=== PATIENT | female | born 2000 | race Caucasian/White ===

== ENCOUNTER 2025-02-17 10:07 | Inpatient (IN) ==
--- NOTE | 2025-02-17 10:37 | Emergency Department Note ---
Impression & Plan Cellulitis of multiple sites of right hand and fingers ED Provider Note CHIEF COMPLAINT: Recheck infected cat bite right hand HPI: Patient is a 25-year-old female who returns to the emergency department as advised for recheck of an infected cat bite on her right second finger. She was seen and evaluated by myself yesterday. The cat bite had occurred the day prior. She received IV Unasyn and was discharged on Augmentin. Patient reports that she has tolerated the antibiotic, with some mild GI upset, she could also be a little nervous or anxious. There is no vomiting. She is only used ibuprofen twice since leaving the emergency department. She feels like the swelling in her finger and hand has gone down, and that movement of her finger is better. Admittedly, the redness on the dorsum of the hand seems to be a little bit worse. No fever, chills, nausea, vomiting or malaise. REVIEW OF SYSTEMS: Review of systems as per HPI. All other systems reviewed were negative. 10 systems reviewed. PMH: T external medical records are reviewed and summarized as above/below. See Problem List. SOCIAL HISTORY: Patient lives at home. PHYSICAL EXAM: Vital Signs: Reviewed Nurse's notes. CONSTITUTIONAL: Patient is a well-appearing 25-year-old female who is awake and alert and seated on the gurney. MUSCULOSKELETAL/INTEGUMENTARY: Examination of the right hand note 2 puncture wounds from the cat bite, 1 on the dorsal second finger at the PIP crease, and one on the palmar aspect of the finger, also at the PIP crease. There is swelling of the right second finger, primarily from the PIP crease, proximally, associated erythema of the finger. There is more coalesced erythema into the dorsum of the hand, from the webspace between the thumb and the index finger to the third metacarpal. There is no lymphangitic streaking past the wrist. The finger is tender to palpation, primarily over the PIP and the proximal phalanx. Passively, she can be extended fully, and can actively flex, limited by soft tissue swelling. There is no significant pain or erythema over the palmar aspect of the finger over the flexor tendons. The right upper extremity is neurovascularly intact. EMERGENCY DEPARTMENT COURSE: The patient was seen and assessed as above. External medical records were reviewed. I am familiar with the patient from her ED visit yesterday. On exam, the erythema has spread and worsened across the dorsum of the hand and finger. She is still moderately swollen, and tender and has decreased range of motion. Fortunately majority of of findings are on the extensor surface of the hand, rather than the flexor, which does refugio well for her. Offered her a repeat dose of IV antibiotics in the ED today, and recheck in another 24 hours, versus inpatient care at this time and she prefers the latter, which I think is reasonable. Saline lock was placed. Laboratory studies were repeated including CBC and BMP. She was given a dose of Unasyn IV. Patient discussed with ED machine adjuster leader case trim and consultation placed with the [facility] hospitalist service. Please refer to hospitalist consultation for further information. Exam does not appear consistent with infectious flexor tenosynovitis, cellulitis, abscess or necrotizing fasciitis at this time. Past Med/Surg History Problem List (Updated 02/17/25 @ 17:35 by Juanjose Camilo) Cellulitis of multiple sites of right hand and fingers (Acute) Cellulitis of multiple sites of right hand and fingers Cat bite of right hand including fingers with infection Cellulitis Cat bite (Acute) Medical History Anxiety Environmental and seasonal allergies Surgical History No history of previous surgery Social History Smoking Status: Never smoker Hx Alcohol Use: Yes Hx Substance Use: No Preferred Language: [place] Communication Ability: Effective Facilities Painter Required: No Beliefs That Will Affect Care: None Current Living Situation: Spouse Current Living Situation Comment: lives at home with boyfriend Feels Safe at Home: Yes Allergies Allergies Allergy/AdvReac Type Severity Reaction Status Date / Time sulfamethoxazole Allergy Mild Verified 02/16/25 09:40 [From Bactrim] trimethoprim [From Bactrim] Allergy Mild Verified 02/16/25 09:40 Home Meds Home Medications Medication Instructions Recorded Confirmed citalopram 40 mg tablet 40 mg PO DAILY 02/16/25 02/17/25 spironolactone 50 mg tablet 50 mg PO DAILY 02/16/25 02/17/25 Previous Rx's Medication Instructions Recorded amoxicillin 875 mg-potassium 1 tab PO BID #20 tabs 02/16/25 clavulanate 125 mg tablet Results & Data (ED) Vital Signs Vital Signs - 24 hr 02/17/25 10:09 Temperature 36.7 C Temperature Source Temporal Artery Scan Pulse Rate 96 H Respiratory Rate 18 Respiratory Effort / Characteristics Non-Labored Spontaneous Respiratory Depth Normal Blood Pressure 146/75 H Blood Pressure Mean 98 Blood Pressure Position Sitting Pulse Oximetry 97 Oxygen Delivery Method Room Air Sepsis Recent Fever Within 48 Hours No Sepsis New/Unexplained Change in Mental Status No Sepsis Action Taken by Nursing No Action Required Home Medications Current Medication List: was personally reviewed by me Laboratory Data Attestation: I reviewed the patient's lab results. 02/17/25 11:25 02/17/25 11:25 Lab Results 02/17/25 Range/Units 11:25 WBC 9.58 (4.8-10.8) K/ul RBC 4.66 (4.20-5.40) M/uL Hgb 14.6 (12.0-16.0) g/dl Hct 41.8 (37.0-47.0) % MCV 89.7 (80.0-100.0) fL MCH 31.3 (25.0-34.0) pg MCHC 34.9 (32.0-36.0) g/dL RDW Std Deviation 39.9 (36.4-46.3) fL RDW Coeff of Sharif 12.2 (11.5-14.5) % Plt Count 264 (130-400) K/uL MPV 9.4 (9.4-12.4) fL Immature Gran % (Auto) 0.2 % Neut % (Auto) 46.6 % Lymph % (Auto) 44.6 % [place] % (Auto) 7.6 % Eos % (Auto) 0.7 % Baso % (Auto) 0.3 % Neut # (Auto) 4.46 (1.40-6.50) K/uL Lymph # (Auto) 4.27 H (1.20-3.40) K/uL [place] # (Auto) 0.73 H (0.11-0.59) K/uL Eos # (Auto) 0.07 (0.00-0.50) K/uL Baso # (Auto) 0.03 (0.00-0.20) K/uL Immature Gran # (Auto) 0.02 (0.01-0.20) K/uL Sodium 137 (136-145) mmol/L Potassium 3.8 (3.5-5.1) mmol/L Chloride 102 (98-107) mmol/L Carbon Dioxide 26 (21-32) mmol/L Anion Gap 9 (3-11) BUN 6 (6-23) mg/dl Creatinine 0.56 L (0.6-1.2) mg/dl Est Cr Clr Drug Dosing 190.0 ml/min eGFR 128.20 BUN/Creatinine Ratio 10.7 (10-20) Glucose 100 H (70-99(Fasting)) mg/dl Calcium 10.3 (8.6-10.3) mg/dl Administered Medications Ampicillin Sodium/Sulbactam Sodium (Unasyn) 3,000 mg in 100 mls @ 200 mls/hr IV Q6H LOR Stop: 02/24/25 16:59 Last Infusion: 02/17/25 17:13 Dose: Infused Documented By: Admin: 02/17/25 16:40 Dose: 200 mls/hr Documented By: ULISSES Discontinued Medications Ampicillin Sodium/Sulbactam Sodium (Unasyn) 3,000 mg in 100 mls @ 200 mls/hr IV NOW STA Stop: 02/17/25 11:34 Last Infusion: 02/17/25 12:32 Dose: Infused Documented By: Admin: 02/17/25 11:25 Dose: 200 mls/hr Documented By: GERARDO Ampicillin Sodium 250 mg/ (Sodium Chloride) 51 mls @ 100 mls/hr IV Q6H LOR; Protocol Stop: 02/24/25 11:29 Last Admin: 02/17/25 12:33 Dose: Not Given Documented By: GERARDO Ioversol (Optiray 320 100ml) 94 ml IV ONCE ONE Stop: 02/17/25 12:15 Last Admin: 02/17/25 12:14 Dose: 94 ml Documented By: LORELEI Discharge Plan Visit Data Chief Complaint: Animal Bite Stated Complaint: CAT BITE, SEEN YESTERDAY ED Provider: Erasto Ramirez ED Midlevel Provider: Juanjose Camilo Discharge Problem: Cellulitis of multiple sites of right hand and fingers Patient Disposition: Admitted As Inpatient Condition: Fair Discharge Instructions Interventions: ED Discharge Assessment Last Done: 02/17/25 13:20
[2025-02-17] MEDS: AMPICILLIN/SULBACTAM SOD 3,000 MG/100 ML BAG IV STA (11:25)
--- NOTE | 2025-02-17 11:36 | History & Physical Report ---
Date of Service February 17, 2025 Assessment & Plan (1) Cat bite: (2) Anxiety: (3) Cellulitis: Plan The patient is a 25-year-old female who presents to the ED on 02/17/25 with complaints of worsening right hand cellulitis secondary to cat bite on 02/15/2025 Right hand cellulitis Cat bite Received IV ampicillin and discharged on amoxicillin on 02/16/2025 Redness worsened and patient reported back to the ED on 02/17 Hand x-ray from 02/16 negative, CT hand without abscess Check blood cultures, consult Ortho, continue IV ampicillin Hx anxiety/depression: Continue citalopram A total 45 minutes spent on chart review/reviewing diagnostic data/facilitating plan of care/discussion with consultants Full code DVT: SCDs History of Present Illness Chief Complaint: Right hand cellulitis, cat bite Primary Care Provider: DEBRA RINCON The patient is a 25-year-old female with a past medical history of anxiety/depression who presents to the ED on 02/17/2025 with concern of a worsening cat bite/right hand cellulitis. Patient was seen in the ER on 02/16/2025 after she was bitten by her house cat on 02/15/25. The cat thought she had a tree in her hand and bit her on the right index finger. She reported rinsing it with saline spray, soap and water and using peroxide. She then applied triple antibiotic ointment and a bandage. Reported her symptoms of swelling and soreness worsened overnight. The cat is up-to-date with vaccinations and the patient's tetanus shot is up-to-date. She was discharged home on amoxicillin and given a dose of IV ampicillin in the ED. The redness and pain worsened so she reported back to the ED on 02/17/2025. She reported the redness has spread over her hand. Denies any nausea/vomiting. Reported some GI upset from antibiotics. Finger x-ray from 02/16/[address] showed cellulitis without abscess Labs on arrival fairly unremarkable. Patient will be admitted for further treatment of cellulitis Allergies Allergy/AdvReac Type Severity Reaction Status Date / Time sulfamethoxazole Allergy Mild Verified 02/16/25 09:40 [From Bactrim] trimethoprim [From Bactrim] Allergy Mild Verified 02/16/25 09:40 Home Medications Medication Instructions Recorded Confirmed Type amoxicillin 875 mg-potassium 1 tab PO BID #20 tabs 02/16/25 02/17/25 Rx clavulanate 125 mg tablet citalopram 40 mg tablet 40 mg PO DAILY 02/16/25 02/17/25 History spironolactone 50 mg tablet 50 mg PO DAILY 02/16/25 02/17/25 History Past Med/Surg History Problem List (Updated 02/17/25 @ 16:38 by RAND Joseph) Cellulitis of multiple sites of right hand and fingers Cat bite of right hand including fingers with infection Cellulitis Cat bite (Acute) Medical History Anxiety Environmental and seasonal allergies Surgical History No history of previous surgery Social History Smoking Status: Never smoker Hx Alcohol Use: Yes Hx Substance Use: No Preferred Language: [place] Communication Ability: Effective It Assistant Required: No Beliefs That Will Affect Care: None Current Living Situation: Spouse Current Living Situation Comment: lives at home with boyfriend Feels Safe at Home: Yes Review of Systems Review of Systems: All systems reviewed & are unremarkable except as noted in HPI & below Physical Exam Constitutional: WD/WN, vitals as above Eyes: PERRL, conjunctivae normal, anicteric sclerae ENMT: external ear and nose normal, oropharynx normal Neck: trachea midline, no thyromegaly Respiratory: normal respiratory effort, lungs clear to auscultation Cardiovascular: RRR, no murmur, no edema Gastrointestinal (Abdomen): normal bowel sounds, soft, nontender, no hepatosplenomegaly Musculoskeletal: no cyanosis or clubbing, extremities motor strength 5/5 (r hand redness and swelling, full rom of r index finger ) Skin: no rashes, warm and dry Neurologic: PERRL, EOMI, accommodation nl, no face palsy, no dysarthria Psychiatric: A+Ox3, euthymic affect Lymphatic: no cervical or axillary lymphadenopathy Results & Data Results & Data Vital Signs (Past 12 Hours) Vital Signs Temp Pulse Resp BP Pulse Ox O2 Del Method 02/17/25 10:09 36.7 C 96 H 18 146/75 H 97 Room Air Diagnostic Findings Laboratory Results WBC 9.58 K/ul (4.8-10.8) 02/17/25 11:25 RBC 4.66 M/uL (4.20-5.40) 02/17/25 11:25 Hgb 14.6 g/dl (12.0-16.0) 02/17/25 11:25 Hct 41.8 % (37.0-47.0) 02/17/25 11:25 MCV 89.7 fL (80.0-100.0) 02/17/25 11:25 MCH 31.3 pg (25.0-34.0) 02/17/25 11:25 MCHC 34.9 g/dL (32.0-36.0) 02/17/25 11:25 RDW Std Deviation 39.9 fL (36.4-46.3) 02/17/25 11:25 RDW Coeff of Sharif 12.2 % (11.5-14.5) 02/17/25 11:25 Plt Count 264 K/uL (130-400) 02/17/25 11:25 MPV 9.4 fL (9.4-12.4) 02/17/25 11:25 Immature Gran % (Auto) 0.2 % 02/17/25 11:25 Neut % (Auto) 46.6 % 02/17/25 11:25 Lymph % (Auto) 44.6 % 02/17/25 11:25 [place] % (Auto) 7.6 % 02/17/25 11:25 Eos % (Auto) 0.7 % 02/17/25 11:25 Baso % (Auto) 0.3 % 02/17/25 11:25 Neut # (Auto) 4.46 K/uL (1.40-6.50) 02/17/25 11:25 Lymph # (Auto) 4.27 K/uL (1.20-3.40) H 02/17/25 11:25 [place] # (Auto) 0.73 K/uL (0.11-0.59) H 02/17/25 11:25 Eos # (Auto) 0.07 K/uL (0.00-0.50) 02/17/25 11:25 Baso # (Auto) 0.03 K/uL (0.00-0.20) 02/17/25 11:25 Immature Gran # (Auto) 0.02 K/uL (0.01-0.20) 02/17/25 11:25 Supervising Physician Co-Signing Physician Notes Patient seen and examined independently. Discussed with above provider. Patient presents to the hospital with cellulitis of right hand after bite from her cat. She was initially prescribed oral antibiotic but the swelling, redness persisted which prompted her to come to the ED. CT of the hand did not show any abscess. Will start patient on Unasyn 3 g every 6 hours; follow-up on blood culture. I have reviewed the advanced practitioner's documentation, and I agree with, and take responsibility for the plan of care I spent a total of 30 minutes coordinating, documenting, and providing care for this patient excluding time spent in the performance of separately billed services. All of the aforementioned completed while collaborating with the assigned advanced practitioner for a full treatment plan
[2025-02-17 11:39] LABS: Basophils # (auto) 0.03 K/uL (0.00-0.20); Basophils % (auto) 0.3 %; Eosinophils # (auto) 0.07 K/uL (0.00-0.50); Eosinophils % (auto) 0.7 %; Hematocrit (blood only) 41.8 % (37.0-47.0); Hemoglobin 14.6 g/dl (12.0-16.0); Immature Granulocytes # (auto) 0.02 K/uL (0.01-0.20); Immature Granulocytes % (auto) 0.2 %; Lymphocytes # (auto) 4.27 K/uL (1.20-3.40); Lymphocytes % (auto) 44.6 %; Mean Corpuscular Hemoglobin 31.3 pg (25.0-34.0); Mean Corpuscular Hgb Conc 34.9 g/dL (32.0-36.0); Mean Corpuscular Volume 89.7 fL (80.0-100.0); Mean Platelet Volume 9.4 fL (9.4-12.4); Monocytes # (auto) 0.73 K/uL (0.11-0.59); Monocytes % (auto) 7.6 %; Neutrophils # (auto) 4.46 K/uL (1.40-6.50); Neutrophils % (auto) 46.6 %; Platelet Count 264 K/uL (130-400); RDW Coefficient of Variation 12.2 % (11.5-14.5); RDW Standard Deviation 39.9 fL (36.4-46.3); Red Blood Count 4.66 M/uL (4.20-5.40); White Blood Count 9.58 K/ul (4.8-10.8)
[2025-02-17 11:56] LABS: BUN Creatinine Ratio 10.7 (10-20); Calcium 10.3 mg/dl (8.6-10.3); Potassium 3.8 mmol/L (3.5-5.1)
[2025-02-17] MEDS: OPTIRAY 320 100ml IV ONE (12:14)
--- NOTE | 2025-02-17 12:30 | CT Scan Report ---
CT hand RT wo/w con CLINICAL HISTORY: worsening cellulitis - r/o abscess - cat bite COMPARISON STUDY: X-ray of 02/16/2025 FINDINGS: There is soft tissue swelling and subcutaneous stranding at the second finger and at the do rsal aspect of the hand consistent with cellulitis. No soft tissue abscess seen. No fracture or dislo cation. No evidence of osteomyelitis. No radiopaque foreign body. IMPRESSION: Cellulitis without evidence of abscess. ACT 112: Negative or not required by law. Electronically signed by: Axel King M.D. 02/17/2025 12:27 PM
[2025-02-17] MEDS: AMPICILLIN 250 MG in SODIUM CHLORIDE 0.9% 50 ML IV SCH (12:33)
[2025-02-17] MEDS ORDERED: ACETAMINOPHEN 325 MG TAB PO PRN (13:20)
--- NOTE | 2025-02-17 15:43 | Orthopedic Consultation ---
Date of Consultation February 17, 2025 Assessment & Plan (1) Cellulitis of multiple sites of right hand and fingers: Patient with 2 days of redness and swelling to the right index finger proximal phalanx extending onto the dorsum of the hand secondary to a cat bite to the index finger. Subjectively the patient feels that the swelling has improved a little bit but she is still stiff and swollen in the index finger. Denies any systemic symptoms. Reviewed labs and imaging. Case is most consistent with cellulitis. Reassured that CT scan does not show any abscess, foreign body, or evidence of osteomyelitis. Exam is not consistent with flexor tenosynovitis and patient does not require OR management currently. Agree with continuing Unasyn per primary team. Recommend elevation of the hand to help with swelling. Warm NSS soaks 3 times daily 10-15 minutes. Pain control per primary service. Will add ESR and CRP onto morning labs tomorrow. Will make patient n.p.o. after midnight tonight in case symptoms worsen and she needs to go to the OR tomorrow. This can be canceled after her evaluation tomorrow morning as long as it is determined she does not need OR management. Patient seen and examined with Dr. Curiel. (2) Cat bite of right hand including fingers with infection: Supervising Physician Co-Signing Physician Notes I, Dr. curiel, saw and examined the patient with my PA. I agree with the above findings and plan of care I developed and discussed with my PA. History of Present Illness Reason for Consultation: Cat bite right hand with infection Requesting Physician: Shelli Curiel MD Attending Physician: Flavio Gustafson MD History of Present Illness Jess is a [id number] 25-year-old female who was admitted to the hospital for right hand infection secondary to a cat bite. Patient was bitten by her house cat 2 days ago in the right index finger. She developed redness and swelling in the finger and hand, and presented to the emergency department yesterday where she was given a dose of IV Unasyn and discharged on Augmentin. She subsequently followed up in the emergency department today and decision was made to admit her for IV antibiotics. Patient has undergone blood work yesterda y and today. She had a mild leukocytosis at 11.82 yesterday, which normalized to 9.58 today. She has had a CT scan of the right hand showing cellulitis with no abscess or osteomyelitis. Blood cultures are pending. Her cat is up-to-date on its rabies vaccine. Her last tetanus shot was in June 2025. Patient states that she feels that the swelling has gotten a little bit better today. She reports a scant amount of clear drainage from one of the bite nunn on her index finger. Has not noticed any red streaks traveling up her arm. Denies any fevers or chills. No pain in the wrist. She rates her pain as 2 out of 10 currently and 8 out of 10 at its worst when she gets up and walks around. She states that her index finger feels stiff when she tries to bend it but she does not experience excruciating pain with bending the finger. She denies any numbness or tingling in the fingers. No history of diabetes. Not immunocompromised. Allergies Allergy/AdvReac Type Severity Reaction Status Date / Time sulfamethoxazole Allergy Mild Verified 02/16/25 09:40 [From Bactrim] trimethoprim [From Bactrim] Allergy Mild Verified 02/16/25 09:40 Home Medications Medication Instructions Recorded Confirmed Type amoxicillin 875 mg-potassium 1 tab PO BID #20 tabs 02/16/25 02/17/25 Rx clavulanate 125 mg tablet citalopram 40 mg tablet 40 mg PO DAILY 02/16/25 02/17/25 History spironolactone 50 mg tablet 50 mg PO DAILY 02/16/25 02/17/25 History Patient History Medical History Anxiety Environmental and seasonal allergies Surgical History No history of previous surgery Social History Smoking Status: Never smoker Hx Alcohol Use: Yes Hx Substance Use: No Preferred Language: Lithuanian Communication Ability: Effective Computer Technology Teacher Required: No Beliefs That Will Affect Care: None Current Living Situation: Spouse Current Living Situation Comment: lives at home with boyfriend Feels Safe at Home: Yes Physical Exam Constitutional: Resting comfortably in bed. In no distress. Pleasant. Cardiovascular: Right radial pulse 2+ Musculoskeletal: Right upper extremity: There is soft tissue swelling and erythema on the proximal phalanx of the right index finger which extends up onto the dorsum of the hand, minimally onto the distal palm. The erythema and swelling does not cross the extensor crease of the wrist. 2 small puncture wounds are present on the proximal phalanx of the index finger. There is no active drainage. Unable to express any fluid with palpation. Patient is able to nearly fully actively extend the index finger. Able to actively flex the index finger to about 2.5 cm from the palm. There is mild tenderness along the flexor aspect of the proximal index finger extending onto the distal aspect of the palm. Minimal discomfort when passively extending the index finger. There is no lymphatic streaking. Wrist range of motion is full and does not cause any pain. Erythema traced with skin marker. Neurologic: No sensory deficits in bilateral fingers to light touch Results & Data Vital Signs (Past 12 Hours) Vital Signs Temp Pulse Pulse Resp BP BP BP 02/17/25 14:35 97.9 F 81 16 138/89 02/17/25 14:00 99.3 F 78 15 128/82 02/17/25 13:20 15 02/17/25 12:00 150/98 H 02/17/25 12:00 150/98 H 02/17/25 11:48 77 16 02/17/25 11:36 145/93 H 02/17/25 11:30 145/93 H 02/17/25 11:30 145/93 H 02/17/25 11:30 74 13 02/17/25 10:09 98.1 F 96 H 18 146/75 H Pulse Ox O2 Del Method 02/17/25 14:35 95 Room Air 02/17/25 14:00 98 Room Air 02/17/25 13:20 02/17/25 12:00 02/17/25 12:00 02/17/25 11:48 02/17/25 11:36 02/17/25 11:30 02/17/25 11:30 02/17/25 11:30 02/17/25 10:09 97 Room Air Laboratory Results 02/17/25 13:28 Aerobic Blood Culture - Pending Blood Anaerobic Blood Culture - Pending 02/17/25 11:25 WBC 9.58 RBC 4.66 Hgb 14.6 Hct 41.8 MCV 89.7 MCH 31.3 MCHC 34.9 RDW Std Deviation 39.9 RDW Coeff of Sharif 12.2 Plt Count 264 MPV 9.4 Immature Gran % (Auto) 0.2 Neut % (Auto) 46.6 Lymph % (Auto) 44.6 [place] % (Auto) 7.6 Eos % (Auto) 0.7 Baso % (Auto) 0.3 Neut # (Auto) 4.46 Lymph # (Auto) 4.27 H [place] # (Auto) 0.73 H Eos # (Auto) 0.07 Baso # (Auto) 0.03 Immature Gran # (Auto) 0.02 Sodium 137 Potassium 3.8 Chloride 102 Carbon Dioxide 26 Anion Gap 9 BUN 6 Creatinine 0.56 L Est Cr Clr Drug Dosing 190.0 eGFR 128.20 BUN/Creatinine Ratio 10.7 Glucose 100 H Calcium 10.3 Diagnostic Findings XR finger(s) RT min 2V CLINICAL HISTORY: 2ND FINGER CAT BITE WITH INFECTION COMPARISON: None FINDINGS: There is soft tissue swelling at the second finger. No fracture or dislocation. No radiopaque foreign body. No evidence of osteomyelitis. IMPRESSION: No acute osseous findings. ACT 112: Negative or not required by law. Electronically signed by: Axel King M.D. 02/16/2025 10:11 AM Dictated: 02/16/25 1010 Transcribed: 02/16/[address] 02/17/25 11:30 CT hand RT wo/w con CLINICAL HISTORY: worsening cellulitis - r/o abscess - cat bite COMPARISON STUDY: X-ray of 02/16/2025 FINDINGS: There is soft tissue swelling and subcutaneous stranding at the second finger and at the dorsal aspect of the hand consistent with cellulitis. No soft tissue abscess seen. No fracture or dislocation. No evidence of osteomyelitis. No radiopaque foreign body. IMPRESSION: Cellulitis without evidence of abscess. ACT 112: Negative or not required by law. Electronically signed by: Axel King M.D. 02/17/2025 12:27 PM (2) Cat bite of right hand including fingers with infection Encounter type: initial encounter Qualified Code(s): S61.451A - Open bite of right hand, initial encounter; S61.259A - Open bite of unspecified finger without damage to nail, initial encounter; L08.9 - Local infection of the skin and subcutaneous tissue, unspecified; W55.01XA - Bitten by cat, initial encounter
[2025-02-17] MEDS: AMPICILLIN/SULBACTAM SOD 3,000 MG/100 ML BAG IV SCH (16:40)
[2025-02-18] MEDS: SPIRONOLACTONE 25 MG TAB PO SCH (10:03)
[2025-02-18] MEDS: CITALOPRAM 40 MG TAB PO SCH (10:03)
--- NOTE | 2025-02-18 10:52 | Orthopedic Progress Note ---
Date of Service February 18, 2025 Assessment & Plan (1) Cellulitis of multiple sites of right hand and fingers: Plan: Patient with 3 days of redness and swelling to the right index finger proximal phalanx extending onto the dorsum of the hand secondary to a cat bite to the index finger. Appearance and symptomatic improvement from yesterday per patient Case is most consistent with cellulitis. Reassured that CT scan does not show any abscess, foreign body, or evidence of osteomyelitis. Exam is not consistent with flexor tenosynovitis and patient does not require OR management currently. Continue IV Unasyn q6 hrs per primary team. Recommend continued elevation of the hand to help with swelling. Warm NSS soaks 3 times daily 10-15 minutes. Pain control per primary service. ESR and CRP have not been performed yet Will lift NPO status. Surgical intervention not indicated at this point (2) Cat bite of right hand including fingers with infection: Admission and Anticipated Discharge Date Admission Date: February 17, 2025 Supervising Physician Co-Signing Physician Notes I, Dr. Curiel, saw and examined the patient. I agree with the above findings and plan of care I developed and discussed with my PA. Much improved today. No plan for surgical intervention. Continue antibiotics and care per primary service. Will sign off. Please recall orthopedics if there are any other concerns. Subjective This 25-year-old female seen today for follow-up of a cat bite to her right index finger. She is currently receiving IV Unasyn. She states the redness and swelling are much better today than they were yesterday. She states that when she soaked it in warm saline yesterday she only had some slight bloody drainage from the puncture sites. Currently she denies chest pain, shortness of breath, fever, chills, sweats, nausea, vomiting, diarrhea or difficulty voiding. She has no complaint of numbness or tingling in her index finger and states that her range of motion is improved as well. Review of Systems Review of Systems: All systems reviewed & are unremarkable except as noted in Subjective Physical Exam Physical Exam: Right index finger/hand. Patient has visible edema, erythema and warmth extending from the PIP joint to the MCP on the dorsal and volar surface. There is note of 2 small punctures 1 on the dorsal and ventral surface just proximal to the PIP joint. The erythema and edema has does not track beyond the base of the MCP joint. A lot of demarcation that was placed yesterday is no longer erythematous or tender. Patient is able to flex the entire finger actively. Passively I was able to flex it to termination. She is able to resist traction and pincer grasp between thumb and index she is able to resist compression of digits 2 and 3. She is able to detect light sensation to touch over the pad of the index finger. There is no palpable fluctuance with palpation. Her peripheral pulses are 2+. Capillary refill is less than 2 seconds. Results & Data Vital Signs (Past 12 Hours) Vital Signs Temp Pulse Resp BP Pulse Ox O2 Del Method 02/18/25 08:16 36.8 C 79 18 131/77 99 Room Air Diagnostic Findings Laboratory Results WBC 9.58 K/ul (4.8-10.8) 02/17/25 11:25 RBC 4.66 M/uL (4.20-5.40) 02/17/25 11:25 Hgb 14.6 g/dl (12.0-16.0) 02/17/25 11:25 Hct 41.8 % (37.0-47.0) 02/17/25 11:25 MCV 89.7 fL (80.0-100.0) 02/17/25 11:25 MCH 31.3 pg (25.0-34.0) 02/17/25 11:25 MCHC 34.9 g/dL (32.0-36.0) 02/17/25 11:25 RDW Std Deviation 39.9 fL (36.4-46.3) 02/17/25 11:25 RDW Coeff of Sharif 12.2 % (11.5-14.5) 02/17/25 11:25 Plt Count 264 K/uL (130-400) 02/17/25 11:25 MPV 9.4 fL (9.4-12.4) 02/17/25 11:25 Immature Gran % (Auto) 0.2 % 02/17/25 11:25 Neut % (Auto) 46.6 % 02/17/25 11:25 Lymph % (Auto) 44.6 % 02/17/25 11:25 [place] % (Auto) 7.6 % 02/17/25 11:25 Eos % (Auto) 0.7 % 02/17/25 11:25 Baso % (Auto) 0.3 % 02/17/25 11:25 Neut # (Auto) 4.46 K/uL (1.40-6.50) 02/17/25 11:25 Lymph # (Auto) 4.27 K/uL (1.20-3.40) H 02/17/25 11:25 [place] # (Auto) 0.73 K/uL (0.11-0.59) H 02/17/25 11:25 Eos # (Auto) 0.07 K/uL (0.00-0.50) 02/17/25 11:25 Baso # (Auto) 0.03 K/uL (0.00-0.20) 02/17/25 11:25 Immature Gran # (Auto) 0.02 K/uL (0.01-0.20) 02/17/25 11:25 Sodium 137 mmol/L (136-145) 02/17/25 11:25 Potassium 3.8 mmol/L (3.5-5.1) 02/17/25 11:25 Chloride 102 mmol/L (98-107) 02/17/25 11:25 Carbon Dioxide 26 mmol/L (21-32) 02/17/25 11:25 Anion Gap 9 (3-11) 02/17/25 11:25 BUN 6 mg/dl (6-23) 02/17/25 11:25 Creatinine 0.56 mg/dl (0.6-1.2) L 02/17/25 11:25 Est Cr Clr Drug Dosing 190.0 ml/min 02/17/25 11:25 eGFR 128.20 02/17/25 11:25 BUN/Creatinine Ratio 10.7 (10-20) 02/17/25 11:25 Glucose 100 mg/dl (70-99(Fasting)) H 02/17/25 11:25 Calcium 10.3 mg/dl (8.6-10.3) 02/17/25 11:[address] 02/17/25 11:30 CT hand RT wo/w con CLINICAL HISTORY: worsening cellulitis - r/o abscess - cat bite COMPARISON STUDY: X-ray of 02/16/2025 FINDINGS: There is soft tissue swelling and subcutaneous stranding at the second finger and at the dorsal aspect of the hand consistent with cellulitis. No soft tissue abscess seen. No fracture or dislocation. No evidence of osteomyelitis. No radiopaque foreign body. IMPRESSION: Cellulitis without evidence of abscess. ACT 112: Negative or not required by law. Electronically signed by: Axel King M.D. 02/17/2025 12:27 PM (2) Cat bite of right hand including fingers with infection Encounter type: initial encounter Qualified Code(s): S61.451A - Open bite of right hand, initial encounter; S61.259A - Open bite of unspecified finger without damage to nail, initial encounter; L08.9 - Local infection of the skin and subcutaneous tissue, unspecified; W55.01XA - Bitten by cat, initial encounter
--- NOTE | 2025-02-18 12:06 | Hospitalist Progress Note ---
Date of Service February 18, 2025 Assessment & Plan (1) Cat bite: (2) Anxiety: (3) Cellulitis: Plan The patient is a 25-year-old female who presents to the ED on 02/17/25 with complaints of worsening right hand cellulitis secondary to cat bite on 02/15/2025 Right hand cellulitis Cat bite Received IV ampicillin and discharged on amoxicillin on 02/16/2025 Redness worsened and patient reported back to the ED on 02/17 Hand x-ray from 02/16 negative, CT hand without abscess or osteomyelitis Check blood cultures- pending -Remains afebrile and white count is not elevated Appreciate Ortho input and recommendationelevate the hand hands, check inflammatory markers and if the condition is worse may need I&D tomorrow Clinically much better with decreasing swelling of the dorsum and also of the right index finger Will continue current intravenous antibiotic Hx anxiety/depression: Continue citalopram Morbidly obese Will need counseling as an outpatient Full code DVT: SCDs Admission and Anticipated Discharge Date Admission Date: February 17, 2025 Subjective 02/18/2025 The patient was seen and examined in medical floor She was admitted with cat bite involving the right hand and has been feeling much better since admission Swelling of the hand and also right index finger has improved a lot Denies any fever and/or chills and the pain is reasonably controlled Review of Systems Review of Systems: All systems reviewed and are unremarkable except as noted below Physical Exam Physical Exam: Lying in bed without any acute distress Constitutional: well developed, well nourished, + ill appearing and + obese Eyes: PERRL, conjunctivae normal, anicteric sclerae ENMT: external ear and nose normal, oropharynx normal Neck: trachea midline, no thyromegaly Respiratory: no respiratory distress Auscultation: lungs clear to auscultation bilaterally Cardiovascular: Rate/Rhythm: regular rate and regular rhythm; not tachycardic Heart Sounds: normal S1 and normal S2; no murmur Extremities: no edema Gastrointestinal (Abdomen): Inspection/Auscultation: + abdomen distended and normal bowel sounds Percussion/Palpation: abdomen soft; abdomen nontender Musculoskeletal: Right hand is swollen and the right index finger is acutely swollen as well with redness and tenderness on palpation Neurologic: normal touch/pain/proprioception and moves all extremities; no focal motor deficits Psychiatric: A+Ox3, euthymic affect Lymphatic: no cervical or axillary lymphadenopathy Results & Data Results & Data Vital Signs (Past 12 Hours) Vital Signs Temp Pulse Resp BP Pulse Ox O2 Del Method 02/18/25 08:16 36.8 C 79 18 131/77 99 Room Air Medications Administered Current Inpatient Medications Acetaminophen (Acetaminophen 325 Mg Tab) 650 mg PO Q4H PRN PRN Reason: pain/fever Stop: 03/19/25 13:19 Citalopram Hydrobromide (Citalopram 40 Mg Tab) 40 mg PO DAILY [facility] Stop: 03/20/25 08:59 Last Admin: 02/18/25 10:03 Dose: 40 mg Ampicillin Sodium/Sulbactam Sodium (Unasyn) 3,000 mg in 100 mls @ 200 mls/hr IV Q6H [facility] Stop: 02/24/25 16:59 Last Infusion: 02/18/25 10:39 Dose: Infused Spironolactone (Spironolactone 25 Mg Tab) 50 mg PO DAILY [facility] Stop: 03/20/25 08:59 Last Admin: 02/18/25 10:03 Dose: 50 mg
--- NOTE | 2025-02-19 08:41 | Orthopedic Progress Note ---
Date of Service February 19, 2025 Assessment & Plan (1) Cellulitis of multiple sites of right hand and fingers: Plan: IMPRESSION: Cellulitis right index finger proximal phalanx secondary to a cat bite, much improved. PLAN: Continue conservative treatment, NO SURGICAL INTERVENTION NEEDED Appearance and symptomatic improvement from yesterday IV Unasyn q6 hrs per primary team. Recommend continued elevation of the hand to help with swelling. Warm NSS soaks 3 times daily 10-15 minutes. Pain control per primary service. Regular diet Continue care per primary service. Will sign off F/U in office in 1 week (2) Cat bite of right hand including fingers with infection: Plan: see above Admission and Anticipated Discharge Date Admission Date: February 17, 2025 Subjective Doing much better Results & Data Vital Signs (Past 12 Hours) Vital Signs Temp Pulse Resp BP Pulse Ox O2 Del Method 02/19/25 07:47 Room Air 02/19/25 07:22 36.5 C 64 16 125/66 97 Room Air Laboratory Results Laboratory Results WBC 9.58 K/ul (4.8-10.8) 02/17/25 11:25 RBC 4.66 M/uL (4.20-5.40) 02/17/25 11:25 Hgb 14.6 g/dl (12.0-16.0) 02/17/25 11:25 Hct 41.8 % (37.0-47.0) 02/17/25 11:25 MCV 89.7 fL (80.0-100.0) 02/17/25 11:25 MCH 31.3 pg (25.0-34.0) 02/17/25 11:25 MCHC 34.9 g/dL (32.0-36.0) 02/17/25 11:25 RDW Std Deviation 39.9 fL (36.4-46.3) 02/17/25 11:25 RDW Coeff of Sharif 12.2 % (11.5-14.5) 02/17/25 11:25 Plt Count 264 K/uL (130-400) 02/17/25 11:25 MPV 9.4 fL (9.4-12.4) 02/17/25 11:25 Immature Gran % (Auto) 0.2 % 02/17/25 11:25 Neut % (Auto) 46.6 % 02/17/25 11:25 Lymph % (Auto) 44.6 % 02/17/25 11:25 [place] % (Auto) 7.6 % 02/17/25 11:25 Eos % (Auto) 0.7 % 02/17/25 11:25 Baso % (Auto) 0.3 % 02/17/25 11:25 Neut # (Auto) 4.46 K/uL (1.40-6.50) 02/17/25 11:25 Lymph # (Auto) 4.27 K/uL (1.20-3.40) H 02/17/25 11:25 [place] # (Auto) 0.73 K/uL (0.11-0.59) H 02/17/25 11:25 Eos # (Auto) 0.07 K/uL (0.00-0.50) 02/17/25 11:25 Baso # (Auto) 0.03 K/uL (0.00-0.20) 02/17/25 11:25 Immature Gran # (Auto) 0.02 K/uL (0.01-0.20) 02/17/25 11:25 Sodium 137 mmol/L (136-145) 02/17/25 11:25 Potassium 3.8 mmol/L (3.5-5.1) 02/17/25 11:25 Chloride 102 mmol/L (98-107) 02/17/25 11:25 Carbon Dioxide 26 mmol/L (21-32) 02/17/25 11:25 Anion Gap 9 (3-11) 02/17/25 11:25 BUN 6 mg/dl (6-23) 02/17/25 11:25 Creatinine 0.56 mg/dl (0.6-1.2) L 02/17/25 11:25 Est Cr Clr Drug Dosing 190.0 ml/min 02/17/25 11:25 eGFR 128.20 02/17/25 11:25 BUN/Creatinine Ratio 10.7 (10-20) 02/17/25 11:25 Glucose 100 mg/dl (70-99(Fasting)) H 02/17/25 11:25 Calcium 10.3 mg/dl (8.6-10.3) 02/17/25 11:[address] 02/17/25 11:30 CT hand RT wo/w con CLINICAL HISTORY: worsening cellulitis - r/o abscess - cat bite COMPARISON STUDY: X-ray of 02/16/2025 FINDINGS: There is soft tissue swelling and subcutaneous stranding at the second finger and at the dorsal aspect of the hand consistent with cellulitis. No soft tissue abscess seen. No fracture or dislocation. No evidence of osteomyelitis. No radiopaque foreign body. IMPRESSION: Cellulitis without evidence of abscess. ACT 112: Negative or not required by law. Electronically signed by: Axel King M.D. 02/17/2025 12:27 PM (2) Cat bite of right hand including fingers with infection Encounter type: initial encounter Qualified Code(s): S61.451A - Open bite of right hand, initial encounter; S61.259A - Open bite of unspecified finger without damage to nail, initial encounter; L08.9 - Local infection of the skin and subcutaneous tissue, unspecified; W55.01XA - Bitten by cat, initial encounter
--- NOTE | 2025-02-19 11:15 | Hospitalist Progress Note ---
Date of Service February 19, 2025 Assessment & Plan (1) Cat bite: (2) Anxiety: (3) Cellulitis: Plan The patient is a 25-year-old female who presents to the ED on 02/17/25 with complaints of worsening right hand cellulitis secondary to cat bite on 02/15/2025 Right hand cellulitis Cat bite Received IV ampicillin and discharged on amoxicillin on 02/16/2025 Redness worsened and patient reported back to the ED on 02/17 Hand x-ray from 02/16 negative, CT hand without abscess or osteomyelitis Check blood cultures- pending -Remains afebrile and white count is not elevated Appreciate Ortho input and recommendationelevate the hand hands, check inflammatory markers and if the condition is worse may need I&D tomorrow Clinically much better with decreasing swelling of the dorsum and also of the right index finger Will continue current intravenous antibiotic -She remains free from any pain and/or symptoms except minimal swelling of the right hand of the right index finger She will be discharged home this afternoon on oral Augmentin for 7 days to complete the course Hx anxiety/depression: Continue citalopram Morbidly obese Will need counseling as an outpatient Full code DVT: SCDs Admission and Anticipated Discharge Date Admission Date: February 17, 2025 Subjective 02/18/2025 The patient was seen and examined in medical floor She was admitted with cat bite involving the right hand and has been feeling much better since admission Swelling of the hand and also right index finger has improved a lot Denies any fever and/or chills and the pain is reasonably controlled 02/19/2025 The patient was seen and examined in medical floor She has been much better and the swelling of the hand at the right index finger are much improved Movement of the hand is unrestricted and without any pain She will be discharged home this afternoon Review of Systems Review of Systems: All systems reviewed and are unremarkable except as noted below Physical Exam Physical Exam: Lying in bed without any acute distress Constitutional: well developed, well nourished, + ill appearing and + obese Eyes: PERRL, conjunctivae normal, anicteric sclerae ENMT: external ear and nose normal, oropharynx normal Neck: trachea midline, no thyromegaly Respiratory: no respiratory distress Auscultation: lungs clear to ausc ultation bilaterally Cardiovascular: Rate/Rhythm: regular rate and regular rhythm; not tachycardic Heart Sounds: normal S1 and normal S2; no murmur Extremities: no edema Gastrointestinal (Abdomen): Inspection/Auscultation: + abdomen distended and normal bowel sounds Percussion/Palpation: abdomen soft; abdomen nontender Musculoskeletal: No significant pain involving the right hand and movement is minimally painful Neurologic: normal touch/pain/proprioception and moves all extremities; no focal motor deficits Psychiatric: A+Ox3, euthymic affect Lymphatic: no cervical or axillary lymphadenopathy Results & Data Results & Data Vital Signs (Past 12 Hours) Vital Signs Temp Pulse Resp BP Pulse Ox O2 Del Method 02/19/25 07:47 Room Air 02/19/25 07:22 36.5 C 64 16 125/66 97 Room Air Medications Administered Current Inpatient Medications Acetaminophen (Acetaminophen 325 Mg Tab) 650 mg PO Q4H PRN PRN Reason: pain/fever Stop: 03/19/25 13:19 Amoxicillin/Clavulanate Potassium (Amoxicillin/Clavulanate 875 Mg Tab) 1 tab PO BIDM [facility]; Protocol Stop: 02/26/25 16:59 Citalopram Hydrobromide (Citalopram 40 Mg Tab) 40 mg PO DAILY [facility] Stop: 03/20/25 08:59 Last Admin: 02/19/25 09:53 Dose: 40 mg Spironolactone (Spironolactone 25 Mg Tab) 50 mg PO DAILY [facility] Stop: 03/20/25 08:59 Last Admin: 02/19/25 09:52 Dose: 50 mg
[2025-02-19] MEDS ORDERED: AMOXICILLIN/CLAVULANATE 875 MG TAB PO SCH (17:00)
--- NOTE | 2025-02-20 09:03 | Discharge Summary ---
Date of Service February 20, 2025 Admission HPI Per Admitting Provider The patient is a 25-year-old female with a past medical history of anxiety/depression who presents to the ED on 02/17/2025 with concern of a worsening cat bite/right hand cellulitis. Patient was seen in the ER on 02/17/20 after she was bitten by her house cat on 02/15/25. The cat thought she had a tree in her hand and bit her on the right index finger. She reported rinsing it with saline spray, soap and water and using peroxide. She then applied triple antibiotic ointment and a bandage. Reported her symptoms of swelling and soreness worsened overnight. The cat is up-to-date with vaccinations and the patient's tetanus shot is up-to-date. She was discharged home on amoxicillin and given a dose of IV ampicillin in the ED. The redness and pain worsened so she reported back to the ED on 02/17/2025. She reported the redness has spread over her hand. Denies any nausea/vomiting. Reported some GI upset from antibiotics. Finger x-ray from 02/16/[address] showed cellulitis without abscess Labs on arrival fairly unremarkable. Patient will be admitted for further treatment of cellulitis Admission Exam Per Admitting Provider Constitutional: WD/WN, vitals as above Eyes: PERRL, conjunctivae normal, anicteric sclerae ENMT: external ear and nose normal, oropharynx normal Neck: trachea midline, no thyromegaly Respiratory: normal respiratory effort, lungs clear to auscultation Cardiovascular: RRR, no murmur, no edema Gastrointestinal (Abdomen): normal bowel sounds, soft, nontender, no hepatosplenomegaly Musculoskeletal: no cyanosis or clubbing, extremities motor strength 5/5 (r hand redness and swelling, full rom of r index finger ) Skin: no rashes, warm and dry Neurologic: PERRL, EOMI, accommodation nl, no face palsy, no dysarthria Psychiatric: A+Ox3, euthymic affect Lymphatic: no cervical or axillary lymphadenopathy Principal Diagnosis Right hand cellulitis secondary to cat bite Discharge Exam Lying in bed without any acute distress Constitutional well developed, well nourished, + ill appearing and + obese Eyes PERRL, conjunctivae normal, anicteric sclerae ENMT external ear and nose normal, oropharynx normal Neck trachea midline, no thyromegaly Respiratory no respiratory distress Auscultation: lungs clear to auscultation bilaterally Cardiovascular Rate/Rhythm: regular rate and regular rhythm; not tachycardic Heart Sounds: normal S1 and normal S2; no murmur Extremities: no edema Gastrointestinal (Abdomen) Inspection/Auscultation: + abdomen distended and normal bowel sounds Percussion/Palpation: abdomen soft; abdomen nontender Neurologic normal touch/pain/proprioception and moves all extremities; no focal motor deficits Psychiatric A+Ox3, euthymic affect Lymphatic no cervical or axillary lymphadenopathy Discharge Data Allergies Allergy/AdvReac Type Severity Reaction Status Date / Time sulfamethoxazole Allergy Mild Verified 02/16/25 09:40 [From Bactrim] trimethoprim [From Bactrim] Allergy Mild Verified 02/16/25 09:40 Consultations 02/17/25 11:26 ED Decision to Admit Stat 02/17/25 13:20 Consult Orthopedic Surgery Routine Ordered Studies 02/17/25 11:30 CT hand RT wo/w con Stat Hospital Course (1) Cat bite: (2) Anxiety: (3) Cellulitis: Plan The patient is a 25-year-old female who presents to the ED on 02/17/25 with complaints of worsening right hand cellulitis secondary to cat bite on 02/15/2025 Right hand cellulitis Cat bite Received IV ampicillin and discharged on amoxicillin on 02/16/2025 Redness worsened and patient reported back to the ED on 02/17 Hand x-ray from 02/16 negative, CT hand without abscess or osteomyelitis Check blood cultures- pending -Remains afebrile and white count is not elevated Appreciate Ortho input and recommendationelevate the hand hands, check inflammatory markers and if the condition is worse may need I&D tomorrow Clinically much better with decreasing swelling of the dorsum and also of the right index finger Will continue current intravenous antibiotic -She remains free from any pain and/or symptoms except minimal swelling of the right hand of the right index finger She will be discharged home this afternoon on oral Augmentin for 7 days to complete the course Hx anxiety/depression: Continue citalopram Morbidly obese Will need counseling as an outpatient Full code DVT: SCDs Total Time Total Time Spent Total Time Spent (In Minutes): 35 minutes Discharge Plan Discharge Items Patient Disposition: Home - Self-Care Reason For Visit: R HAND CAT BITE Discharge Diagnosis: Right hand cellulitis secondary to cat bite Condition on Discharge: Good Activity: Resume your previous activity Non-emergency contact: Primary Care Provider Call non-emergency contact if: you have any medication questions and your symptoms worsen Follow-up/Referrals: Jose Gunn PA [Physician Solution Advisor] - 03/03/25 7:45 am Paolo Bustamante MD [Primary Care Provider] - Diet: Regular Addtl Attending Provider Instructions: Finish the course of antibiotic Try probiotic of your choice from [id number] You will be called with an appointment [facility] Please keep appointments with your healthcare provider Addtl Machine Crater Provider Instructions: Orthopedic discharge instructions Warm soaks 10 to 15 minutes 3 times daily followed by gentle massage Elevate hand above heart for swelling Antibiotics per primary team Work on hand and finger range of motion as tolerated Advance activity as tolerated Follow-up in our office in 1 to 2 weeks. Contact our office at [phone] or go to the emergency department if your symptoms are worsening Pending Studies at Discharge: No Stand-Alone Forms: My [facility] [employer], Work/School Release, Smoking Cessation Medications and DC Order Prescriptions: Continued amoxicillin-pot clavulanate 875-125 mg tablet 1 tab PO BID Qty: 20 0RF citalopram 40 mg tablet 40 mg PO DAILY Rx Instructions: filled 02/04 90 day #90 spironolactone 50 mg tablet 50 mg PO DAILY Rx Instructions: last filled 12/12 90 day supply #90 Discharge Orders: Discharge Order (Routine); Ordered 02/19/25 Ordered By: Jyothi Schwartz/Other Patient Handouts: Animal Bites and Scratches Admission Data Admit Date/Time: 02/17/25 11:26 Attending Provider: Jyothi Raya Admit Provider: Flavio Gustafson Primary Care Provider: Paolo Bustamante Other Providers: Jostin Curiel; Flavio Gustafson Other Interventions: Discharge Summary Assessment (RN) Last Done: 02/19/25 12:01
== END 2025-02-19 12:12 | disposition home or self-care (01) | DRG 605 ==
LOC: ED 10:07 → EDINP 11:26 → SUATTDRO 11:26 → 3N 13:20